=== PATIENT | female | born 1980 | race Caucasian/White ===

== ENCOUNTER 2019-12-20 11:51 | Outpatient (CLI) | payer OTHER, SELFPAY ==
--- NOTE | 2019-12-20 | XR_ITS ---
WS: [id number] HAND RIGHT TECHNIQUE: 3 views of the right hand CLINICAL INFORMATION: RT HAND PAIN COMPARISON: None. FINDINGS: Normal metacarpals. Normal MCP joint. Metacarpal heads are normal in appearance. Normal PIP and DIP j oints. No evidence of acute fracture or dislocation. Radiocarpal joint: Normal. Carpal bones: Normal. XR/XR hand RT min 3V* [id number] IMPRESSION: Normal right hand.
== END 2019-12-20 11:52 | disposition home or self-care (01) ==
PROVIDERS: Family Provider Family Medicine; PCP Family Medicine; Visit Provider Nurse Practitioner Family
DX: Z01.89 Encounter for other specified special examinations (principal)

== ENCOUNTER 2021-04-24 10:34 | Emergency (ER) | payer MEDICAID, SELFPAY ==
[2021-04-24 11:13] VITALS: BP 130/65; PULSE 72; RESP 16; TEMP 36.3; O2SAT 98; BMI 20.8
[2021-04-24 11:24] VITALS: BP 119/78; PULSE 72; RESP 17; TEMP 36.6; O2SAT 100; O2SAT 99
--- NOTE | 2021-04-24 11:29 | CT_ITS ---
WS: [id number] CT HEAD TECHNIQUE: Noncontrast CT of the head obtained from the skullbase to the vertex. CLINICAL INFORMATION: worst headache of life COMPARISON: 11 05,014 DLP: 768.[address] scans at [facility] use at least one of these dose optimization techniques: automat ed exposure control; mA and/or kV adjustment per patient size (includes targeted exams where dose is matched to clinical indication); or iterative reconstruction. FINDINGS: No evidence of intracranial hemorrhage or mass effect. Ventricular system and basal cisterns are mata nt. No extra-axial fluid collections. No evidence of mass or mass effect. Normal covington-white different iation. Incidental cerebellar tonsillar ectopia unchanged. Paranasal sinuses and mastoid air cells are well aerated. .Normal visualized soft tissues. CT/CT head wo con* [id number] IMPRESSION: 1. No evidence of intracranial hemorrhage or mass effect. 2. Normal covington-white differentiation. 3. Paranasal sinuses and mastoid air cells are well aerated. 4. No acute intracranial findings.
--- NOTE | 2021-04-24 11:34 | W.ED.HA ---
HPI - Headache General: Chief Complaint: Headache Stated Complaint: Ongoing Headache, N/V Time Seen by Provider: 04/24/21 11:20 History of Present Illness: HPI Narrative: 41-year-old female presents emergency room complaining of headache. She had a headache for the last several days tried various [id number] medications with no relief she has had headaches in the past she describes the pain is bilateral temporal type headache wrapping all the way around her head she is not had any autophobia or photophobia she has not had any vomiting but she has had some nausea no no effective vision. No recent head trauma. States is the worst headache she has ever had in her life. MD elicited complaint: headache Pertinent past history: migraines Onset (ago): day(s) Onset description: gradually Location: temporal and diffuse Severity: moderate Quality & Timing: throbbing and worst headache of life Exacerbating factors: none Relieving factors: nothing Associated symptoms: Deny chest pain, confusion, cough, diaphoresis, eye pain, eye redness, fever(s), lightheadedness, loss of vision, malaise, nausea, neck stiffness, numbness, paresthesias, photophobia, pre-syncope, rash, seizures, short of breath, sound sensitivity, syncope, vomiting or weakness Treatments prior to arrival: none Review of Systems Const: Denies: fever(s), malaise or diaphoresis ENMT: Denies: throat pain, ear or mastoid pain, nasal discharge or nasal congestion Card: Denies: chest pain, lightheadedness, syncope or pre-syncope Resp: Denies: dyspnea, productive cough or non-productive cough GI: Denies: nausea or vomiting : Denies: flank pain, difficulty voiding, dysuria, urinary frequency or urinary urgency Skin/Breast: Denies: rash Neuro: Denies: confusion PFSH ED PFSH: Social History Smoking and tobacco status: current every day smoker Alcohol intake: current Alcohol intake frequency: holidays/special occasions only Substance/Drug Use: never Physical Exam Const: COMMON NORMALS: no acute distress GENERAL APPEARANCE: cooperative and comfortable ORIENTATION/CONSCIOUSNESS: Yes awake, Yes oriented to person, Yes oriented to place and Yes oriented to time HENMT: COMMON NORMALS: normocephalic, atraumatic and hearing grossly normal bilaterally HEAD & SCALP: normocephalic and atraumatic Eye: DIRECT OPHTHALMOSCOPY: No photophobia Neck/C-Spine: COMMON NORMALS: no JVD Resp: COMMON NORMALS: normal respiratory effort, No retractions, No use of accessory muscles and clear to auscultation bilaterally AUSCULTATION: clear to auscultation bilaterally Cardio: COMMON NORMALS: no JVD, regular rate, regular rhythm and No murmurs present (Cardio) RATE: regular rate RHYTHM: regular rhythm GI: COMMON NORMALS: Soft to palpation and No hepatosplenomegaly present AUSCULTATION: Yes normoactive bowel sounds PALPATION: Yes Soft to palpation, No Tenderness to palpation present (GI), No Guarding due to palpation present (GI) and Yes No hepatosplenomegaly present Extremity: COMMON NORMALS: normal to inspection, capillary refill normal, no clubbing, cyanosis or edema, no calf tenderness and no pedal edema Neuro: SENSORIUM/ORIENTATION: Yes oriented to person, Yes oriented to place and Yes oriented to time Skin: COMMON NORMALS: no rashes or lesions noted GENERAL SKIN EXAM: no rashes or lesions noted Course Vital Signs: Vital signs: Vital Signs Temperature 97.8 F 04/24/21 11:24 Pulse Rate 68 04/24/21 14:40 Respiratory Rate 18 04/24/21 14:40 Blood Pressure 114/75 04/24/21 14:40 Pulse Oximetry 100 04/24/21 13:33 MDM - Headache MDM Narrative: Medical decision making narrative: Headache has finally improved we will discharge her home started on amitriptyline set up to see neurology. Pressure headache seems to be more tension-like although she did get some radiation and occipital nerve-like pattern she may benefit from Botox injections. Lab Data: Labs: Lab Results 04/24/21 04/24/21 Range/Units 12:01 12:01 WBC 10.8 H (4.0-10.0) 10^3/ uL RBC 5.23 (4.1-5.3) 10^6/u L Hgb 16.3 H (11.5-15.3) g/dL Hct 47.6 H (37.0-47.0) % MCV 91.0 (81-99) fL MCH 31.2 (28.0-34.0) pg MCHC 34.2 (30.0-36.0) g/dL RDW 12.8 (12.1-15.1) % Plt Count 207 (130-400) 10^3/c mm MPV 12.2 H (7.4-10.4) fL Neut % (Auto) 63.8 % Lymph % (Auto) 27.1 % Crawford % (Auto) 6.5 % Eos % (Auto) 1.7 % Baso % (Auto) 0.5 % Neut # (Auto) 6.90 (1.8-7.7) 10^3/u L Lymph # (Auto) 2.9 (0.8-4.8) 10^3/u L Crawford # (Auto) 0.7 (0.2-0.9) 10^3/u L Eos # (Auto) 0.2 (0.0-0.8) 10^3/u L Baso # (Auto) 0.1 (0.0-0.1) 10^3/u L Nucleated RBC % (a uto) 0 % Nucleated RBCs # 0.0 /100WBC Sodium 139 (136-145) mmol/L Potassium 4.0 (3.5-5.1) mmol/L Chloride 102 (98-107) mmol/L Carbon Dioxide 25 (22-29) mmol/L Anion Gap 16.0 (5-19) BUN 13 (6-20) mg/dL Creatinine 0.7 (0.5-0.9) mg/dL GFR Calculation 93.2 (90-130) mL/min Glucose 63 L (65-115) mg/dL Calculated Osmolal ity 286 (285-295) mOsm/k g Calcium 8.9 (8.5-10.5) mg/dL Discharge Plan Discharge Patient Disposition: Home Clinical Impression: Tension headache Condition: Stable Prescriptions: New amitriptyline 25 mg tablet 25 mg PO DAILY Qty: 30 RF: 0 No Action Excedrin Migraine 250-250-65 mg Tablet 1 tab PO Q6H PRN (Reason: Migraine Headache) RF: 0 Discharge Orders: Discharge ED (Routine); Ordered 04/24/21 Ordered By: Jose Candelaria Patient Instructions: Opioid Safety Activity Restrictions/Additional Instructions: Case management will set you up to see neurology. Follow-up with your primary care doctor within the week. Coding Level of Care Code ED Radiophone Operator for Chg Fwd Exam Comprehensive
[2021-04-24 12:17] LABS: Basophils # 0.1 10^3/uL (0.0-0.1); Basophils % 0.5 %; Eosinophils # 0.2 10^3/uL (0.0-0.8); Eosinophils % 1.7 %; Hematocrit 47.6 % (37.0-47.0); Hemoglobin 16.3 g/dL (11.5-15.3); Lymphocytes # 2.9 10^3/uL (0.8-4.8); Lymphocytes % 27.1 %; Mean Corpuscular HGB Conc 34.2 g/dL (30.0-36.0); Mean Corpuscular Hemoglobin 31.2 pg (28.0-34.0); Mean Platelet Volume 12.2 fL (7.4-10.4); Monocytes # 0.7 10^3/uL (0.2-0.9); Monocytes % 6.5 %; Neutrophils % 63.8 %; Nucleated Red Blood Cells % 0 %; Platelet Count 207 10^3/cmm (130-400); Red Blood Count 5.23 10^6/uL (4.1-5.3); Red Cell Distribution Width 12.8 % (12.1-15.1); White Blood Count 10.8 10^3/uL (4.0-10.0)
[2021-04-24 12:34] LABS: Blood Urea Nitrogen 13 mg/dL (6-20); Calcium 8.9 mg/dL (8.5-10.5); Carbon Dioxide 25 mmol/L (22-29); Chloride 102 mmol/L (98-107); Glomerular Filtration Rate 93.2 mL/min (90-130); Glucose 63 mg/dL (65-115); Osmolality Calculated 286 mOsm/kg (285-295); Sodium 139 mmol/L (136-145)
[2021-04-24] MEDS: sodium chloride 0.9% 1,000 ML 999 ML IV (12:45)
[2021-04-24] MEDS: ketorolac 30 mg/mL INJ IVP (12:48)
[2021-04-24] MEDS: diphenhydrAMINE 50 mg/mL SDV 1mL 25 MG IVP ×2 (12:49→12:57)
[2021-04-24] MEDS: valproic acid inj 500 MG in sodium chloride 0.9% 50 ML 55 MG IV (12:53)
[2021-04-24] MEDS: promethazine 25 mg/mL SDV 1 mL IM (12:53)
[2021-04-24 13:15] VITALS: RESP 18; O2SAT 100
[2021-04-24] MEDS: morphine 4 mg/mL SDV 1 mL IVP (13:15)
[2021-04-24 13:33] VITALS: BP 139/55; PULSE 57; RESP 15; O2SAT 100
[2021-04-24] MEDS: orphenadrine 30 mg/mL Inj 2 mL 60 MG IVP (13:49)
[2021-04-24 14:40] VITALS: BP 114/75; PULSE 68; RESP 18
[2021-04-24] MEDS: LORazepam 2 mg/mL INJ 1 mL 1 MG IVP (14:48)
[2021-04-24 15:26] VITALS: BP 111/70; PULSE 73; RESP 16; O2SAT 94
--- NOTE | 2021-04-25 11:43 | DCPLANNER ---
manager educational had message to schedule a follow up appointment for patient with neurology for neurology botox. manager educational emailed patients information to the neurology clinic. Patients information will be printed and reviewed. Clinic will call patient with appointment information.
[2021-04-26 13:07] LABS: Lyme AB Screen <0.90 index
--- NOTE | 2021-04-27 15:00 | DCPLANNER ---
Patient has a follow up appointment scheduled for Friday, April 30, [address] at 8:[address] Alfredo. Clinic will call patient with appointment information.
[2021-05-01 18:08] LABS: E. Chaffeensis AB IGG <1:64; E. Chaffeensis AB IGM <1:20
[2021-05-01 22:33] LABS: RMSF IGG NOT DETECTED; RMSF IGM NOT DETECTED
== END 2021-04-24 15:53 | disposition home or self-care (01) ==
PROVIDERS: Emergency Provider Family Medicine
DX: G44.209 Tension-type headache, unspecified, not intractable (principal); F17.210 Nicotine dependence, cigarettes, uncomplicated
CPT/HCPCS: 70450; 80048; 85025; 86618; 86666; 86757; 96365; 96372; 96375; 96376; 99284; J1200; J1885; J2060; J2270; J2360; J2550; J7030

== ENCOUNTER → 2021-04-30 07:56 | Outpatient (BNVA) | payer MEDICAID, SELFPAY | PROVIDERS: PCP Internal Medicine Cardiovascular Disease; Visit Provider Specialist | DX: M54.81 Occipital neuralgia (principal); G44.52 New daily persistent headache (NDPH); G43.709 Chronic migraine without aura, not intractable, without status migrainosus; F17.200 Nicotine dependence, unspecified, uncomplicated | CPT/HCPCS: 64405; 64450; 99204; J1030; J3490 ==

== ENCOUNTER 2021-05-02 15:17 | Emergency (ER) | payer MEDICAID, SELFPAY ==
[2021-05-02 15:50] VITALS: BP 112/64; PULSE 88; RESP 18; TEMP 37.3; O2SAT 98; BMI 21.4
[2021-05-02 17:13] VITALS: PULSE 83; RESP 18; O2SAT 100
--- NOTE | 2021-05-02 18:04 | ED_ITS ---
HPI - Headache General: Chief Complaint: Headache Stated Complaint: Headache/Sent From [facility] Time Seen by Provider: 05/02/21 16:39 Source: patient, family and RN notes reviewed Mode of arrival: ambulatory Limitations: no limitations History of Present Illness: HPI Narrative: Patient has an occipital headache for about one month. She has a prior history of migraines but states that this is different from her regular migraines. She was seen in this ED for this about 8 days ago and her pain was eventually controlled after multiple doses of medications. A head CT scan done at that time was unremarkable. She was discharged to follow-up with the neurologist. She saw the neurologist, Dr. Alfredo, 2 days ago and she received Botox injections to the occipital region. The patient states that it did not help her pain and after she called Dr. Alfredo's office today she was advised to come to the emergency department to be evaluated. MD elicited complaint: headache Onset (ago): month(s) (1) Onset description: gradually Location: occipital Severity: severe Quality & Timing: sharp Exacerbating factors: none Relieving factors: nothing Context: occurred at rest Associated symptoms: Deny chest pain, confusion, cough, diaphoresis, eye pain, eye redness, fever(s), lightheadedness, loss of vision, malaise, nausea, neck stiffness, numbness, paresthesias, pre-syncope, rash, seizures, short of breath, sound sensitivity, syncope, vomiting or weakness Treatments prior to arrival: acetaminophen, ibuprofen and migraine medication Review of Systems General: Reports: 10 or more systems reviewed and unremarkable except in HPI and below Const: Denies: fever(s), malaise or diaphoresis Card: Denies: chest pain, lightheadedness, syncope or pre-syncope GI: Denies: nausea or vomiting Skin/Breast: Denies: rash Neuro: Denies: confusion PFS ED PFSH: Social History Smoking and tobacco status: current every day smoker Alcohol intake: current Alcohol intake frequency: holidays/special occasions only Physical Exam Const: COMMON NORMALS: no acute distress, average body habitus, patient oriented x3, no limitations, healthy appearing, alert and well nourished HENMT: COMMON NORMALS: normocephalic, atraumatic and moist oral mucous membranes HEAD & SCALP: normocephalic and atraumatic Eye: COMMON NORMALS: Equal, round and reactive pupils present, EOMs intact bilaterally, conjunctivae normal and no scleral icterus CONJUNCTIVA: Yes conjunctivae normal PUPIL: Yes Equal, round and reactive pupils present Neck/C-Spine: COMMON NORMALS: full ROM, supple, no meningeal signs, no JVD and No carotid bruits Resp: COMMON NORMALS: normal respiratory effort, No retractions, No use of accessory muscles, clear to auscultation bilaterally and percussion normal AUSCULTATION: clear to auscultation bilaterally PERCUSSION: percussion normal Cardio: COMMON NORMALS: no JVD, regular rate, regular rhythm, S1 normal heart sound present, S2 normal heart sound present, No gallops present (Cardio), No clicks present (Cardio), No murmurs present (Cardio), No rub (Cardio) and Peripheral pulses 2+ throughout RATE: regular rate RHYTHM: regular rhythm HEART SOUNDS: S1 normal heart sound present and S2 normal heart sound present PERIPHERAL PULSES: Peripheral pulses 2+ throughout GI: COMMON NORMALS: Normal to inspection, nondistended, normoactive bowel sounds present, Soft to palpation, non-tender, No hepatosplenomegaly present, no masses and no bruits PALPATION: Yes Soft to palpation and Yes No hepatosplenomegaly present Neuro: COMMON NORMALS: patient oriented x3 SENSORIUM/ORIENTATION: Yes alert MENINGEAL SIGNS: Yes no meningeal signs Course Reevaluation(s): Reevaluation #1: Headache has resolved. She feels much better. This is the first time she has been headache free for about a month. She already sees a neurologist and is waiting for an MRA of her head and neck. She will follow-up with the neurologist as scheduled. She voiced understanding and is in agreement with the plan. Time: 20:42 Vital Signs: Vital signs: Vital Signs Temperature 99.1 F 05/02/21 15:50 Pulse Rate 69 05/02/21 21:13 Respiratory Rate 18 05/02/21 18:49 Blood Pressure 110/78 05/02/21 18:49 Pulse Oximetry 98 05/02/21 21:13 MDM - Headache MDM Narrative: Medical decision making narrative: 41-year-old female patient who presents to the emergency department with a headache that has been ongoing for about a month. She was seen in this emergency department 8 days ago for the same and also saw a neurologist 2 days ago where she obtained some Botox injections to her occipital region. Nothing has given her any pain relief. In the emergency department she was given ketorolac, diphenhydramine and metoclopramide initially but this did not help her headache. She was then given dexamethasone, valproic acid and magnesium sulfate and these resolved her headaches completely. She was discharged home with no new medications but is to follow-up with a neurologist. Medical Records: Attestation: I reviewed the patient's medical records. Discharge Plan Discharge Patient Disposition: Home Clinical Impression: Headache Qualifiers: Headache type: unspecified Headache chronicity pattern: acute headache Intractability: intractable Qualified Code(s): R51.9 - Headache, unspecified Condition: Stable Prescriptions: Continued amitriptyline 25 mg tablet 25 mg PO DAILY Qty: 30 RF: 1 Excedrin Migraine 250-250-65 mg Tablet 1 tab PO Q6H PRN (Reason: Migraine Headache) RF: 0 Discharge Orders: Discharge ED (Routine); Ordered 05/02/21 Ordered By: Yasmeen Castillo Referrals: Faizan Contreras MD [Primary Care Provider] - 1-3 days Discharge Diet: Usual diet Discharge Activity: Increase activity as tolerated Patient Instructions: Acute Headache (ED) Activity Restrictions/Additional Instructions: Return for any new or worsening symptoms. Follow-up with your primary care provider within 3 days. Follow-up with Dr. Alfredo as scheduled. Continue your home medications. Stand Alone Forms: Work/School Release Coding Level of Care Code ED Language Arts Teacher for Sivan Brumfield
[2021-05-02] MEDS: diphenhydrAMINE 50 mg/mL SDV 1mL 25 MG IVP (18:23)
[2021-05-02] MEDS: ketorolac 30 mg/mL INJ IVP (18:23)
[2021-05-02] MEDS: metoclopramide 5 mg/mL SDV 2 mL 10 MG IVP (18:23)
[2021-05-02 18:25] VITALS: BP 102/78; PULSE 90; RESP 18; O2SAT 98
[2021-05-02 18:49] VITALS: BP 110/78; PULSE 86; RESP 18; O2SAT 98
[2021-05-02] MEDS: magnesium sulfate premix 2 GM/50 ML PIGGYBACK IV (20:00)
[2021-05-02] MEDS: dexamethasone 10 mg/mL INJ IVP (20:00)
[2021-05-02] MEDS: valproic acid inj 1,000 MG in sodium chloride 0.9% 50 ML 55 MG IV (20:08)
[2021-05-02 21:13] VITALS: PULSE 69; O2SAT 98
== END 2021-05-02 21:13 | disposition home or self-care (01) ==
PROVIDERS: Emergency Provider Family Medicine; PCP Internal Medicine Cardiovascular Disease
DX: R51.9 Headache, unspecified (principal); F17.200 Nicotine dependence, unspecified, uncomplicated
CPT/HCPCS: 96365; 96367; 96375; 99284; J1100; J1200; J1885; J2765; J3475

== ENCOUNTER → 2021-06-14 13:21 | Outpatient (BNVA) | payer MEDICAID, SELFPAY | PROVIDERS: PCP Internal Medicine Cardiovascular Disease; Visit Provider Specialist | DX: G43.709 Chronic migraine without aura, not intractable, without status migrainosus (principal); G44.52 New daily persistent headache (NDPH); M54.81 Occipital neuralgia; F17.200 Nicotine dependence, unspecified, uncomplicated | CPT/HCPCS: 99214 ==

== ENCOUNTER 2021-06-22 09:50 | Emergency (ER) | payer MEDICAID, SELFPAY ==
[2021-06-22 10:07] VITALS: BP 142/80; PULSE 74; RESP 15; TEMP 36.7; O2SAT 97; BMI 21.4
[2021-06-22 14:06] VITALS: BP 113/65; RESP 18
[2021-06-22] MEDS: ketorolac 30 mg/mL INJ IVP (14:14)
[2021-06-22] MEDS: sodium chloride 0.9% 1,000 ML 999 ML IV (14:15)
[2021-06-22] MEDS: valproic acid inj 500 MG in sodium chloride 0.9% 50 ML 55 MG IV (14:15)
--- NOTE | 2021-06-22 14:26 | ED_ITS ---
HPI - Headache General: Chief Complaint: Headache Stated Complaint: h/a Time Seen by Provider: 06/22/21 13:48 History of Present Illness: HPI Narrative: 89-year-old female with a history of migraines. She had a migraine that began to worsen significantly around 1 AM this morning progressively worsened she took several exbq-xge-oqzcchf medications as well as topiramate which she was recently started on for headache prophylaxis has had no improvement. Headache is similar to what she has had in the past she has photophobia and autophobia she is not currently using any headache prophylaxis.Reviewing Dr. Alfredo notes patient was diagnosed as having bilateral occipital neuralgia. She has had occipital nerve blocks with Depo-Medrol and bupivacaine in the past. In April she seen in the emergency room and was treated with Depacon and magnesium and had improvement of her headache. Patient continued continues to report daily headaches. Of note today she has some photophobia and phonophobia which she told Dr. Alfredo at her visit on June 14 she usually does not have. She has previously had CTs of the head which were negative. She is supposed to be getting an MRA of the head. MD elicited complaint: headache Onset (ago): month(s) Onset description: on awakening Location: right, left and occipital Severity: severe Quality & Timing: aching and throbbing Exacerbating factors: light and noise Relieving factors: nothing Associated symptoms: Reports photophobia and sound sensitivity; Deny chest pain, confusion, cough, diaphoresis, eye pain, eye redness, fever(s), lightheadedness, loss of vision, malaise, nausea, neck stiffness, numbness, paresthesias, pre-syncope, rash, seizures, short of breath, syncope, vomiting or weakness Treatments prior to arrival: none Review of Systems Const: Denies: fever(s), malaise or diaphoresis ENMT: Denies: throat pain, ear or mastoid pain, nasal discharge or nasal congestion Card: Denies: chest pain, lightheadedness, syncope or pre-syncope Resp: Denies: dyspnea, productive cough or non-productive cough GI: Denies: nausea or vomiting : Denies: flank pain, difficulty voiding, dysuria, urinary frequency or urinary urgency Skin/Breast: Denies: rash Neuro: Denies: confusion PFSH ED PFSH: Social History Smoking and tobacco status: current every day smoker Alcohol intake: current Alcohol intake frequency: holidays/special occasions only Physical Exam Const: COMMON NORMALS: no acute distress GENERAL APPEARANCE: cooperative and comfortable ORIENTATION/CONSCIOUSNESS: Yes awake, Yes oriented to person, Yes oriented to place and Yes oriented to time HENMT: COMMON NORMALS: normocephalic, atraumatic and hearing grossly normal bilaterally HEAD & SCALP: normocephalic and atraumatic Eye: DIRECT OPHTHALMOSCOPY: Yes photophobia Neck/C-Spine: COMMON NORMALS: no JVD Resp: COMMON NORMALS: normal respiratory effort, No retractions, No use of accessory muscles and clear to auscultation bilaterally AUSCULTATION: clear to auscultation bilaterally Cardio: COMMON NORMALS: no JVD, regular rate, regular rhythm and No murmurs present (Cardio) RATE: regular rate RHYTHM: regular rhythm GI: COMMON NORMALS: Soft to palpation and No hepatosplenomegaly present AUSCULTATION: Yes normoactive bowel sounds PALPATION: Yes Soft to palpation, No Tenderness to palpation present (GI), No Guarding due to palpation present (GI) and Yes No hepatosplenomegaly present Extremity: COMMON NORMALS: normal to inspection, capillary refill normal, no clubbing, cyanosis or edema, no calf tenderness and no pedal edema Neuro: SENSORIUM/ORIENTATION: Yes oriented to person, Yes oriented to place and Yes oriented to time Skin: COMMON NORMALS: no rashes or lesions noted GENERAL SKIN EXAM: no rashes or lesions noted Course Vital Signs: Vital signs: Vital Signs Temperature 98.0 F 06/22/21 10:07 Pulse Rate 66 06/22/21 16:51 Respiratory Rate 16 06/22/21 16:51 Blood Pressure 106/75 06/22/21 16:51 Pulse Oximetry 98 06/22/21 16:51 MDM - Headache MDM Narrative: Medical decision making narrative: Reviewed old notes from Dr. Alfredo. Also called and discussed with her she recommended DHE protocol following the protocol all the way through we did after supplying several other medications and getting no relief. After the first dose of DHE patient did not like how it made her feel she refused any further. Offered morphine and dexamethasone disown and patient declined she wishes to go home. Continues the Topamax and follow-up Discharge Plan Discharge Patient Disposition: Home Clinical Impression: Bilateral occipital neuralgia Condition: Stable Prescriptions: No Action topiramate [Topamax] 100 mg tablet 100 mg PO DAILY Qty: 30 RF: 5 Discharge Orders: Discharge ED (Routine); Ordered 06/22/21 Ordered By: Jose Candelaria Referrals: Faizan Contreras MD [Primary Care Provider] - Patient Instructions: Opioid Safety Coding Level of Care Code ED Maple Syrup Maker for Sivan Brumfield
[2021-06-22] MEDS: diphenhydrAMINE 50 mg/mL SDV 1mL IVP (16:05)
[2021-06-22] MEDS: dihydroergotamine 1 mg/mL Inj IVP (16:15)
[2021-06-22 16:24] VITALS: BP 105/80; PULSE 79; RESP 18; O2SAT 100
[2021-06-22 16:51] VITALS: BP 106/75; PULSE 66; RESP 16; O2SAT 98
== END 2021-06-22 16:51 | disposition home or self-care (01) ==
PROVIDERS: Emergency Provider Family Medicine; PCP Internal Medicine Cardiovascular Disease
DX: M54.81 Occipital neuralgia (principal); F17.210 Nicotine dependence, cigarettes, uncomplicated
CPT/HCPCS: 96365; 96366; 96375; 99284; 99291; J1110; J1200; J1885; J7030

== ENCOUNTER 2021-07-09 15:38 | Outpatient (CLI) | payer MEDICAID, SELFPAY ==
--- NOTE | 2021-07-09 16:00 | MR_ITS ---
WS: [id number] MRA ANGIOGRAPHY [place] HISTORY: G43.709 - Chronic migraine without aura, not intractable,... COMPARISON: None available. TECHNIQUE: 3-D MR angiography is performed of the [place]. All images are reviewed including source images. Caliber distal RIGHT vertebral artery is patent. Dominant LEFT vertebral artery. Basilar artery is no rmal. Posterior cerebral arteries are both patent. Intracranial carotid arteries are both patent. No occlusion or aneurysm. Middle cerebral arteries are normal caliber and patent bilaterally. No aneurysm. 3 mm outpouching anterior communicating artery. This could be overlapping tortuous arteries. Suspect this is probably a very small aneurysm. A1 and A 2 segments are normal caliber. MR/MR angio head wo con [id number] IMPRESSION: 1. 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 Highly suspect this is probably a small aneurysm. Recommend foll ow-up CT angiogram [place] for confirmation. 2. Small caliber distal RIGHT vertebral artery is probably a normal variant.
--- NOTE | 2021-07-09 16:00 | MR_ITS ---
WS: [id number] MRI BRAIN WITHOUT CONTRAST HISTORY: G43.709 - Chronic migraine without aura, not intractable,... COMPARISON: CT head 04/24/2021 TECHNIQUE: Diffusion imaging, multiplanar T1, T2 and FLAIR imaging obtained. No evidence for acute infarct or hemorrhage. Jaramillo-white matter differentiation is normal. There are very few scattered T2 and FLAIR signal subcortical white matter lesions. Predominantly with in the frontal and temporal lobes. No prior infarcts or lacunae. Ventricles and extra-axial spaces are normal. No inferior displacement of cerebellar tonsils. The sella turcica and pituitary gland are unremarkabl e. Bulbous area of decreased signal intensity in the region of the anterior communicating artery. Suspic ious for an aneurysm that was described on the MR angiogram the same day. Outpouching measures 3 mm. No hemorrhage. Paranasal sinuses: Clear. Mastoid air cells: Normal. Calvarium and scalp: Intact. MR/MR head wo con* [id number] IMPRESSION: 1. No acute infarcts. 2. Mild subcortical white matter disease. This can be seen with hypertension, smoking, microvascular disease and migraines. 3. Anterior communicating artery outpouching consistent with a small aneurysm. Please refer to MR angiogram report.
== END 2021-07-09 15:39 | disposition home or self-care (01) ==
LOC: RADSHAW 15:39
PROVIDERS: PCP Internal Medicine Cardiovascular Disease; Visit Provider Specialist
DX: G43.709 Chronic migraine without aura, not intractable, without status migrainosus (principal); G44.52 New daily persistent headache (NDPH); M54.81 Occipital neuralgia
CPT/HCPCS: 70544; 70551

== ENCOUNTER → 2021-07-19 09:53 | Outpatient (BNVA) | payer MEDICAID, SELFPAY | PROVIDERS: PCP Internal Medicine Cardiovascular Disease; Visit Provider Specialist | DX: G43.711 Chronic migraine without aura, intractable, with status migrainosus (principal); I67.1 Cerebral aneurysm, nonruptured | CPT/HCPCS: 99215 ==

== ENCOUNTER → 2021-10-01 08:23 | Outpatient (BNVA) | payer MEDICAID, SELFPAY | PROVIDERS: PCP Internal Medicine Cardiovascular Disease; Visit Provider Specialist | DX: G43.711 Chronic migraine without aura, intractable, with status migrainosus (principal) | CPT/HCPCS: 99213 ==

== ENCOUNTER → 2022-03-18 15:08 | Outpatient (BNVA) | payer MEDICAID, SELFPAY | PROVIDERS: PCP Internal Medicine Cardiovascular Disease; Visit Provider Specialist | DX: G43.711 Chronic migraine without aura, intractable, with status migrainosus (principal); I67.1 Cerebral aneurysm, nonruptured | CPT/HCPCS: 80053; 85025; 99213; 99214 ==

== ENCOUNTER 2022-05-14 11:38 | Outpatient (CLI) | payer MEDICAID, SELFPAY ==
--- NOTE | 2022-05-14 11:45 | MR_ITS ---
WS: [id number] MRA ANGIOGRAPHY [place] HISTORY: I67.1 - Cerebral aneurysm, nonruptured COMPARISON: 07/09/2021 TECHNIQUE: 3-D MR angiography is performed of the [place]. All images are reviewed including source images. Small caliber but patent distal RIGHT vertebral artery. Dominant LEFT vertebral artery. Basilar arter y is normal caliber. Posterior cerebral arteries are normal caliber and patent. Intracranial carotid arteries are widely patent. Middle cerebral arteries are normal caliber. No aneu rysms or occlusions. Again noted is the focal outpouching centered near the anterior communicating artery measuring 5.2 mm in diameter. There has been a very minimal increase in size of this aneurysm since the prior study. Aneurysm is centered over the RIGHT lateral aspect of the anterior communicating artery and could pot entially be arising from the anterior communicating artery or the proximal RIGHT A2 segment. There is no hemorrhage. No additional aneurysms are identified. MR/MR angio head wo con [id number] IMPRESSION: 1. Very minimal increase in size of the aneurysm centered over the RIGHT later al anterior communicating artery. Minimal increase in size since 07/09/2021. Rec ommend continued close MRA follow-up. This aneurysm may be associated with the anterior communicating artery or the proximal RIGHT A2 segment. 2. Normal variant small caliber RIGHT vertebral artery.
== END 2022-05-14 11:39 | disposition home or self-care (01) ==
PROVIDERS: PCP Family Medicine; Visit Provider Specialist
DX: I67.1 Cerebral aneurysm, nonruptured (principal)
CPT/HCPCS: 70544

== ENCOUNTER 2022-08-14 11:51 | Outpatient (CLI) | payer MEDICAID, SELFPAY ==
--- NOTE | 2022-08-14 11:45 | MR_ITS ---
WS: [id number] MRA ANGIOGRAPHY [place] HISTORY: G43.711 - Chronic migraine without aura, intractable, aneurysm. COMPARISON: 07/09/2021 and 05/14/2021 TECHNIQUE: 3-D MR angiography is performed of the [place]. All images are reviewed including source images. Small caliber distal vertebral artery. Dominant LEFT vertebral artery. Normal basilar artery. Posteri or cerebral arteries are patent. Small caliber but patent posterior communicating arteries. Intracranial carotid arteries are normal. No occlusions. Normal bilateral middle cerebral arteries. A gain noted is a 5 mm aneurysm involving the anterior communicating artery. Well-rounded aneurysm with no associated hemorrhage or increase in size. A1 and A2 segments are negative. MR/MR angio head wo con [id number] IMPRESSION: 1. No change in the 5 mm anterior communicating artery aneurysm. 2. No additional aneurysms identified. 3. Small but patent distal RIGHT vertebral artery probably normal variant.
== END 2022-08-14 11:52 | disposition home or self-care (01) ==
LOC: RAD 11:53
PROVIDERS: PCP Family Medicine; Visit Provider Specialist
DX: G43.711 Chronic migraine without aura, intractable, with status migrainosus (principal); I67.1 Cerebral aneurysm, nonruptured; M54.81 Occipital neuralgia
CPT/HCPCS: 70544

== ENCOUNTER 2023-02-10 08:44 | Outpatient (CLI) | payer MEDICAID, SELFPAY ==
--- NOTE | 2023-02-10 08:45 | MR_ITS ---
WS: [id number] MRA HEAD TECHNIQUE: Axial 3-D TOF images obtained with axial images and axial, sagittal, and coronal 2-D refor matted images. CLINICAL INFORMATION: I67.1 - Cerebral aneurysm, nonruptured COMPARISON: MRA August 14, 2022 FINDINGS: Stable 5 mm interconnecting artery aneurysm. This is unchanged since 09-03. Distal vertebral arteries are patent. LEFT dominant vertebral artery. Tiny but patent distal RIGHT ve rtebral artery. Normal vascularity to the [employer] territory bilaterally. Both ICAs are patent at the skull base. Normal vascularity to the ALEX and MCA territories bilaterally . No evidence of flow-limiting proximal stenosis. MR/MR angio head wo con [id number] IMPRESSION: 1. 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 This is unchanged since 09-03. 2. No other significant interval changes.
== END 2023-02-10 08:45 | disposition home or self-care (01) ==
LOC: RAD 08:48
PROVIDERS: PCP Family Medicine; Visit Provider Specialist
DX: I67.1 Cerebral aneurysm, nonruptured (principal)
CPT/HCPCS: 70544

== ENCOUNTER 2023-09-23 07:01 | Outpatient (CLI) | payer MEDICAID, SELFPAY ==
--- NOTE | 2023-09-23 07:15 | MR_ITS ---
WS: [id number] MRA ANGIOGRAPHY [place] [facility] [place] HISTORY: I67.1 - Cerebral aneurysm, nonruptured COMPARISON: 02/10/2023 TECHNIQUE: 3-D MR angiography is performed of the [place]. All images are reviewed including source images. Small caliber but patent distal RIGHT vertebral artery. Dominant LEFT vertebral artery. Normal basila r artery normal posterior cerebral arteries. Small hypoplastic posterior communicating arteries. Reidentified is a 5 mm aneurysm along the anterior communicating artery. Aneurysm projects anteriorly . No increase in size. No associated hemorrhage. Intracranial carotids, middle cerebral and anterior cerebral arteries are otherwise normal. IMPRESSION: 1. Stable 5 mm anterior communicating cerebral artery aneurysm. No increase in size. 2. No additional aneurysms.
== END 2023-09-23 07:02 | disposition home or self-care (01) ==
LOC: RAD 07:01
PROVIDERS: PCP Family Medicine; Visit Provider Specialist
DX: I67.1 Cerebral aneurysm, nonruptured (principal)
CPT/HCPCS: 70544

== ENCOUNTER 2024-03-01 10:56 | Outpatient (CLI) | payer MEDICAID, SELFPAY ==
--- NOTE | 2024-03-01 11:15 | MR_ITS ---
WS: [id number] MRA HEAD TECHNIQUE: Axial 3-D TOF images obtained with axial images and axial, sagittal, and coronal 2-D refor matted images. CLINICAL INFORMATION: I67.1 - Cerebral aneurysm, nonruptured COMPARISON: 2021 2022 FINDINGS: Again seen is the anterior communicating artery aneurysm which is stable in appearance compared to th e prior examination dating back to 2021. This measures 5.6 x 4.9 mm unchanged. No other significant c hanges. Dominant distal LEFT vertebral artery. Smaller but patent distal RIGHT vertebral artery. Basilar chalino ry is patent. Normal vascularity to the [employer] territory bilaterally. Both ICAs are patent at the skull base. Small LEFT A1 segment. Normal vascularity to the ALEX and MCA territories bilaterally. No flow-limiting stenosis. MR/MR angio head wo con [id number] IMPRESSION: 1. Stable anterior projecting anterior communicating artery aneurysm 2. No proximal flow-limiting intracranial stenosis. 3. No other change compared to previous.
== END 2024-03-01 10:57 | disposition home or self-care (01) ==
LOC: RAD 10:56
PROVIDERS: PCP Family Medicine; Visit Provider Specialist
DX: I67.1 Cerebral aneurysm, nonruptured (principal)
CPT/HCPCS: 70544

== ENCOUNTER 2024-11-10 14:22 | Outpatient (CLI) | payer SELFPAY ==
--- NOTE | 2024-11-10 14:45 | MR_ITS ---
WS: [id number] MRA ANGIOGRAPHY [place] [facility] [place] HISTORY: R51.9 - Headache, unspecified COMPARISON: 03/01/2024 TECHNIQUE: 3-D MR angiography is performed of the [place] of [place]. All images are reviewed including source images. Reidentified is the anterior communicating artery aneurysm which is unchanged over several prior exam inations dating back to 2021. Aneurysm measures 4.3 x 4.7 mm and projects anterior from the anterior communicating artery. No new hemorrhage. No increase in size. Dominant distal LEFT vertebral artery. RIGHT vertebral artery is patent. Normal basilar artery. Alleg[place] posterior cerebral arteries. Intracranial carotid arteries are normal caliber. Normal vascularity t o the anterior and middle cerebral artery territories. MR/MR angio head wo con [id number] IMPRESSION: 1. Stable anterior communicating artery aneurysm measuring 4.3 x 4.7 mm since 2021. 2. No new or additional aneurysms.
== END 2024-11-10 14:23 | disposition home or self-care (01) ==
PROVIDERS: PCP Family Medicine; Visit Provider Specialist
DX: I67.1 Cerebral aneurysm, nonruptured (principal); R51.9 Headache, unspecified
CPT/HCPCS: 70544